=== PATIENT | female | born 1940 | race Caucasian/White ===

== ENCOUNTER 2021-12-15 12:27 | Outpatient (CLI) | payer OTHER | END 2021-12-15 13:00 | disposition home or self-care (01) | LOC: MRI 12:27 | PROVIDERS: ATTEND Orthopaedic Surgery | DX: M75.121 Complete rotator cuff tear or rupture of right shoulder, not specified as traumatic (principal); M47.812 Spondylosis without myelopathy or radiculopathy, cervical region; M47.816 Spondylosis without myelopathy or radiculopathy, lumbar region | CPT/HCPCS: 73221 ==